=== PATIENT | female | born 1960 | race Caucasian/White ===

== ENCOUNTER → 2016-05-26 | Outpatient (CLI) | payer OTHER ==
[~2016-05-26] MED LIST: ERGO2000 PO; FLUO1TAB3 PO; HYDR12.57 PO; HYDR200T3 PO; LISI-515 PO; MELO-1 PO; OMEP40CA2 PO; PIRO20CA PO; POTA10CA PO; VITATAB11
--- NOTE | 2016-05-26 16:54 | RADRPT ---
EXAM DATE/TIME: 05/26/2016 16:32 [place] COMPARISON: No previous studies available for comparison. INDICATIONS : Right leg pain and swelling. MEDICAL HISTORY : Hypertension. Lupus. SURGICAL HISTORY : Right leg surgery. Tubal ligation. ENCOUNTER: Initial ACUITY: 4 - 6 days PAIN SCORE: 2/10 LOCATION: Right leg. TECHNIQUE: Venous ultrasound of the leg was performed from the inguinal ligament to the proximal calf. Real-slava e, color Doppler and spectral tracing, compression and augmentation techniques were used. FINDINGS: There is normal compressibility of the deep venous system from the inguinal region to the proximal ca lf. No echogenic clot is seen in the lumen of the common femoral, femoral, popliteal, and posterior tibial veins. There is a normal response of the venous system to proximal and distal augmentation an d respiration. CONCLUSION: Normal examination. Gwyn Paredes MD on May 26, 2016 at 16:51 Board Certified Radiologist. This report was verified electronically.
== END ==
LOC: HRAD 15:27
PROVIDERS: ATTEND Hospitalist
DX: I82.409 Acute embolism and thrombosis of unspecified deep veins of unspecified lower extremity (principal)
CPT/HCPCS: 93971